=== PATIENT | female | born 1925 | race Caucasian/White ===

== ENCOUNTER 2017-02-23 12:44 | Emergency (ER) | payer MEDICAID ==
[~2017-02-23] VITALS: Ht 160 cm; Wt 89.6 kg
[~2017-02-23 12:44] MED LIST: ACET-141 PO; ATEN50TA PO; ATOR80TA75 PO; CIPR500T4 PO; DICY20TA59 PO; DIPH1TAB25 PO; GABA300C PO; METR500T PO
[2017-02-23 12:48] VITALS: Ht 160 cm; Wt 89.6 kg
[2017-02-23] MEDS ORDERED: SOD CHLORIDE 0.9% 1,000 ML IV STA (14:28)
[2017-02-23] MEDS ORDERED: ONDANSETRON 4 MG INJ IV STA (14:28)
[2017-02-23] MEDS ORDERED: morphine 2 MG INJ IV STA (14:28)
[2017-02-23 15:16] LABS: ADD SCAN DIFF NO
[2017-02-23 15:19] LABS: ADD UMIC YES; BASOPHILS % 0.3 % (0.0-2.0); EOSINOPHILS # 0.1 10^3/ul (0.0-0.5); EOSINOPHILS % 1.7 % (0.0-7.0); HEMATOCRIT 40.8 % (37.0-47.0); LYMPHOCYTES # 1.9 10^3/ul (0.8-2.9); LYMPHOCYTES % 29.4 % (15.0-51.0); MEAN CORPUSCULAR HEMOGLOBIN 31.8 pg (29.0-33.0); MEAN CORPUSCULAR HGB CONC 34.3 g/dl (32.0-37.0); MEAN CORPUSCULAR VOLUME 92.7 fl (82.0-101.0); MEAN PLATELET VOLUME 11.9 fl (7.4-10.4); MONOCYTE # 0.5 10^3/ul (0.3-0.9); MONOCYTES % 7.3 % (0.0-11.0); PLATELET COUNT 154 10^3/UL (140-415); RED CELL DISTRIBUTION WIDTH 12.3 % (11.5-14.5); URINE BILIRUBIN (Dip) NEGATIVE (NEGATIVE); URINE BLOOD (Dip) NEGATIVE (NEGATIVE); URINE COLOR LT. YELLOW (YELLOW); URINE GLUCOSE (Dip) NEGATIVE (NEGATIVE); URINE KETONES (Dip) NEGATIVE (NEGATIVE); URINE LEUKOCYTE ESTERASE (Dip) TRACE (NEGATIVE); URINE NITRITE (Dip) NEGATIVE (NEGATIVE); URINE TOTAL PROTEIN (Dip) NEGATIVE (NEGATIVE); URINE UROBILINOGEN (Dip) 0.2 E.U./dL (0.1-1.0); WHITE BLOOD COUNT 6.5 10^3/ul (4.8-10.8)
[2017-02-23 15:30] LABS: SQUAMOUS EPITHELIAL CELL,UR FEW; URINE RBCS 0-2 /HPF (0)
[2017-02-23 15:31] LABS: BACTERIA,URINE FEW
[2017-02-23 15:38] LABS: ALBUMIN 4.5 g/dl (3.3-4.9); ALBUMIN/GLOBULIN RATIO 1.45; BILIRUBIN,INDIRECT 0.6 mg/dl (0-1.1); BILIRUBIN,TOTAL 0.6 mg/dl (0.2-1.3); CALCIUM 9.9 mg/dl (8.4-10.2); CREATININE 0.63 mg/dl (0.44-1.00); POTASSIUM 4.3 mmol/L (3.5-5.1); TOTAL PROTEIN 7.6 g/dl (6.1-8.1)
--- NOTE | 2017-02-23 15:47 | RADRPT ---
PROCEDURE: CT Abdomen and Pelvis without contrast. CLINICAL INDICATION: Left flank pain TECHNIQUE: CT of the abdomen and pelvis was performed on a multi-detector scanner without IV contr ast. Coronal and sagittal images were reformatted from the axial data set. One or more of the foll owing dose reduction techniques were used: automated exposure control, adjustment of the mA and/or kV according to patient size, use of iterative reconstruction technique. CTDI = 12.56 mGy. DLP = 69 7.9 mGy-cm. COMPARISON: CT, 05/15/2016 FINDINGS: CT abdomen: The lung bases are clear. The heart size is normal, without pericardial effusion. The liver demons trates multiple benign cysts, stable over time. Gallbladder, biliary tree, pancreas, spleen, adrena l glands and kidneys are unremarkable. No urolithiasis or obstructive uropathy is identified. The stomach is grossly unremarkable. The aorta is of normal caliber. There is no retroperitoneal lymphadenopathy. The wilner hepatis reg ion is clear. CT pelvis: No bowel obstruction, free intraperitoneal air or abscess is identified. Sigmoid diverticulosis is seen without diverticulitis. Mild retained fecal material may indicate constipation. There is no a ppendicitis or colitis. Urinary bladder, uterus and adnexa are unremarkable. No pelvic mass, free fluid or lymphadenopathy is identified. The surrounding osseous structures are remarkable for degenerative spondylosis of the spine. No ost eolytic or osteoblastic lesion is detected. 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 IMPRESSION: 1. Sigmoid diverticulosis is seen without diverticulitis. 2. Mild retained fecal material may indicate constipation. 3. No urolithiasis or obstructive uropathy is identified. 4. 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 5. No mass, lymphadenopathy, or focal acute inflammatory process is identified. RPTAT: HDWR .Tony Boone MD, MD Date Time Electronically viewed and signed by .Tony Boone MD, MD on 02/23/2017 15:47 .R/
[2017-02-23] MEDS ORDERED: DICLOFENAC SODIUM 37.5 MG/ML VIAL IV STA (16:01)
[2017-02-23] MEDS ORDERED: METH500T PO (16:16)
[2017-02-23] MEDS ORDERED: HYDR-906 PO (16:16)
[2017-02-23] MEDS ORDERED: NAPR-688 PO (16:16)
[2017-02-23] MEDS ORDERED: CEPH-443 PO (16:16)
[2017-02-23] MEDS ORDERED: POLY17PO6 PO (16:20)
[2017-02-23] MEDS ORDERED: CHOL20003 PO (16:26)
[2017-02-23 16:28] VITALS: BP 148/82; PULSE 70; RESP 16
--- NOTE | 2017-02-23 16:34 | ERD ---
ER Documentation Chief Complaint Date/Time DATE: 02/23/17 TIME: 16:24 Chief Complaint BACK PAIN TODAY, TEARFUL, SCANTY URINE HPI This 89-year-old female presents emergency room today with left-sided lower back pain as well as pain shooting down the back of her leg to the level of her foot. She is coming by her daughter. She wears the pain may be kidney pain and she thinks she might have a history of kidney stones. She denies any fever or chills. She does not have dysuria. Sever the pain itself she feels otherwise well. The pain is been present for the last 10 days. She does experience back pain sometimes but this is worse than normal. She denies any numbness. Denies any leg weakness. ROS All systems reviewed and are negative except as per history of present illness. Medications Home Meds Active Scripts Polyethylene Glycol* (Miralax*) 17 Gm Powd.pack, 17 GM PO DAILY, #7 Prov:ELVAI CARTAGENA DO 02/23/17 Cephalexin* (Keflex*) 500 Mg Capsule, 500 MG PO TID for 3 Days, CAP Prov:ELVIA CARTAGENA DO 02/23/17 Hydrocodone/Acetaminophen ([place] 5-325 Tablet) 1 Each Tablet, 1 EACH PO Q12, # 10 TAB Prov:ELVIA CARTAGENA DO 02/23/17 Methocarbamol* (Robaxin*) 500 Mg Tab, 500 MG PO Q8, #20 TAB Prov:ELVIA CARTAGENA DO 02/23/17 Naproxen* (Naproxen*) 500 Mg Tablet, 375 MG PO BID Y for PAIN, #14 TAB Prov:ELVIA CARTAGENA DO 02/23/17 Dicyclomine Hcl* (Bentyl*) 20 Mg Tablet, 20 MG PO QID, #14 TAB Prov:JER REEDSTOLOS A. DO 05/15/16 Diphenoxylate Hcl-Atropine* (Lomotil*) 1 Tab Tab, 1 TAB PO QID Y for DIARRHEA, # 10 TAB Prov:JESSIEOSJERSTOLOS A. DO 05/15/16 Metronidazole* (Flagyl*) 500 Mg Tablet, 500 MG PO TID for 7 Days, TAB Prov:JER REEDSTOLOS A. DO 05/15/16 Ciprofloxacin Hcl* (Ciprofloxacin Hcl*) 500 Mg Tablet, 500 MG PO BID for 7 Days , TAB Prov:KIANA REED DO 05/15/16 Reported Medications Atorvastatin* (Atorvastatin*) 80 Mg Tablet, 80 MG PO HS, TAB 04/28/15 Atenolol* (Atenolol*) 50 Mg Tablet, 50 MG PO DAILY, TAB 04/28/15 Acetaminophen* (Acetaminophen*) 500 MG Extra Strength Tablet, 500 MG PO Q4H Y for PAIN AND OR ELEVATED TEMP, TAB 12/19/14 Gabapentin* (Neurontin*) 300 Mg Capsule, 300 MG PO BID 02/27/11 Allergies Allergies: Coded Allergies: No Known Allergies (Verified Allergy, Mild, 05/15/16) PMhx/Soc History of Surgery: No Anesthesia Reaction: No Hx Neurological Disorder: Yes ('s palsy) Hx Respiratory Disorders: No Hx Cardiac Disorders: Yes (htn, cholesterol) Hx Psychiatric Problems: No Hx Miscellaneous Medical Probl: Yes (gallstones ) Hx Alcohol Use: No Hx Substance Use: No Hx Tobacco Use: No Smoking Status: Never smoker Physical Exam Vitals Vital Signs Date Time Temp Pulse Resp B/P Pulse Ox O2 Delivery O2 Flow Rate FiO2 02/23/17 12:48 98.1 78 18 178/ 99 Physical Exam Const: [] No distress Head: Atraumatic Eyes: Normal Conjunctiva ENT: Normal External Ears, Nose and Mouth. Neck: Full range of motion..~ No meningismus. Resp: Clear to auscultation bilaterally Cardio: Regular rate and rhythm, no murmurs Abd: Soft, non tender, non distended. Normal bowel sounds Skin: No petechiae or rashes Back: No midline or flank tenderness, left lumbar paraspinal muscle spasm with tenderness. Ext: No cyanosis, or edema, no saddle anesthesia, distal pulses intact all 4 extremities Neur: Awake and alert and oriented 3, no focal deficits, cranial nerves II through XII intact, 5 out of 5 strength bilateral lower extremities Psych: Normal Mood and Affect Result Diagram: 02/23/17 1455 02/23/17 1455 Results 24 hrs Laboratory Tests Test 02/23/17 14:55 White Blood Count 6.510^3/ul Red Blood Count 4.4010^6/ul Hemoglobin 14.0g/dl Hematocrit 40.8% Mean Corpuscular Volume 92.7fl Mean Corpuscular Hemoglobin 31.8pg Mean Corpuscular Hemoglobin Concent 34.3g/dl Red Cell Distribution Width 12.3% Platelet Count 34198^3/UL Mean Platelet Volume 11.9fl Neutrophils % 61.0% Lymphocytes % 29.4% Monocytes % 7.3% Eosinophils % 1.7% Basophils % 0.3% Nucleated Red Blood Cells % 0.0/100WBC Neutrophils # 4.010^3/ul Lymphocytes # 1.910^3/ul Monocytes # 0.510^3/ul Eosinophils # 0.110^3/ul Basophils # 0.010^3/ul Nucleated Red Blood Cells # 0.010^3/ul Urine Color LT. YELLOW Urine Clarity CLEAR Urine pH 7.0 Urine Specific [place] 1.010 Urine Ketones NEGATIVE Urine Nitrite NEGATIVE Urine Bilirubin NEGATIVE Urine Urobilinogen 0.2 E.U./dL Urine Leukocyte Esterase TRACE Urine Microscopic RBC 0-2/HPF Urine Microscopic WBC 2-5/HPF Urine Squamous Epithelial Cells FEW Urine Bacteria FEW Urine Hemoglobin NEGATIVE Urine Glucose NEGATIVE% Urine Total Protein NEGATIVE Sodium Level 141mmol/L Potassium Level 4.3mmol/L Chloride Level 106mmol/L Carbon Dioxide Level 27mmol/L Anion Gap 12 Blood Urea Nitrogen 15mg/dl Creatinine 0.63mg/dl Glucose Level 98mg/dl Calcium Level 9.9mg/dl Total Bilirubin 0.6mg/dl Direct Bilirubin 0.00mg/dl Indirect Bilirubin 0.6mg/dl Aspartate Amino Transf (AST/SGOT) 22IU/L Alanine Aminotransferase (ALT/SGPT) 28IU/L Alkaline Phosphatase 83IU/L Total Protein 7.6g/dl Albumin 4.5g/dl Globulin 3.10g/dl Albumin/Globulin Ratio 1.45 Lipase 137U/L Current Medications Medications (Trade) Dose Ordered Sig/Bette Route PRN Reason Start Time Stop Time Status Last Admin Dose Admin Sodium Chloride (NS) 1,000 ml @ 1,000 mls/hr Q1H STAT IV 02/23/17 14:28 02/23/17 15:27 DC 02/23/17 15:11 Morphine Sulfate (morphine) 2 mg ONCE STAT IV 02/23/17 14:28 02/23/17 14:32 DC 02/23/17 15:12 Ondansetron HCl (Zofran Inj) 4 mg ONCE STAT IV 02/23/17 14:28 02/23/17 14:32 DC 02/23/17 15:12 Diclofenac Sodium (Dyloject) 37.5 mg ONCE STAT IV 02/23/17 16:01 02/23/17 16:03 DC Procedures/MDM Unilateral muscle spasm and back pain with sciatica in the elderly female with no history of trauma. CT demonstrates spondylolysis that is chronic in nature. This could be causing the patient's symptoms. I have very low suspicion for cauda equina syndrome as patient has no saddle anesthesia, urinary retention, incontinence, and no leg weakness. She was given 2 mg of morphine as well as dilated jacked which did help with her pain in the emergency room. She was smiling and feeling better. Did have trace leukocyte esterase with 2-5 white cells in the urine. This may represent a possible urinary tract infection. I am been treated with 3 days of Keflex to be safe. Also giving her Robaxin as well as naproxen for spasm. Giving her 10 [place] 5 pills as well in instructing with her and the daughter that she should be careful with these as they can cause dizziness and possible falls. CT abdomen pelvis interpretation: Mild constipation, L5-S1 spondylolysis, mild constipation, no free air, no obstruction, no abnormal fat stranding. Departure Diagnosis: Primary Impression: Flank pain, acute Additional Impressions: Back pain with sciatica Constipation Condition: Stable Patient Instructions: Flank Pain, Uncertain Cause, Back Pain W/ Sciatica Additional Instructions: Llame al doctor NAVNEET y choco demond PRASHANT PARA DENTRO DE 2-3 MOY para conseguir un referral a un doctor de ORTHO SPINE. Dgale a la secretaria que nosotros le instruimos hacer esta prashant.Avise o llame si mcgill condicin se empeora antes de la prashant. Regresa aqui si peor o no mejor. ELVIA CARTAGENA DO February 23, 2017 16:34
== END 2017-02-23 16:36 | disposition home or self-care (01) ==
LOC: E/R 12:44
DX: R10.9 Unspecified abdominal pain (principal); R40.2252 Coma scale, best verbal response, oriented, at arrival to emergency department; M54.42 Lumbago with sciatica, left side; K59.00 Constipation, unspecified; R40.2142 Coma scale, eyes open, spontaneous, at arrival to emergency department; R40.2362 Coma scale, best motor response, obeys commands, at arrival to emergency department; I10 Essential (primary) hypertension
CPT/HCPCS: 36415; 74176; 80053; 81001; 81003; 83690; 85025; 96374; 96375; J2270; J2405; J7030; Z7502

== ENCOUNTER 2017-08-02 14:23 | Emergency (ER) | payer MEDICAID ==
[~2017-08-02] VITALS: Ht 157.5 cm; Wt 60.0 kg
[~2017-08-02 14:23] MED LIST changes: -ACET-141 PO; -ATEN50TA PO; -ATOR80TA75 PO; +CEPH-443 PO; +CHOL200073 PO; -CIPR500T4 PO; -DICY20TA59 PO; -DIPH1TAB25 PO; -GABA300C PO; +HYDR-906 PO; +METH500T PO; -METR500T PO; +NAPR-688 PO; +POLY17PO6 PO
[2017-08-02 14:29] VITALS: Ht 157.5 cm; Wt 60.0 kg
[2017-08-02] MEDS ORDERED: KETOROLAC 15 MG INJ IV STA (16:48)
[2017-08-02] MEDS ORDERED: ONDANSETRON 4 MG INJ IV STA (16:48)
[2017-08-02] MEDS ORDERED: morphine 4 MG/ML VIAL IV STA (16:48)
[2017-08-02 17:17] LABS: ADD UMIC YES; UR ASCORBIC ACID NEGATIVE (NEGATIVE); UR BACTERIA FEW /HPF (NONE SEEN); UR BILIRUBIN (Dip) NEGATIVE (NEGATIVE); UR BLOOD (Dip) 1+ mg/dL (NEGATIVE); UR CLARITY CLEAR (CLEAR); UR COLOR YELLOW (YELLOW); UR GLUCOSE (Dip) NEGATIVE (NEGATIVE); UR KETONES (Dip) NEGATIVE (NEGATIVE); UR LEUKOCYTE ESTERASE (Dip) 1+ Leu/ul (NEGATIVE); UR NITRITE (Dip) NEGATIVE (NEGATIVE); UR RBC 3 /HPF (0-5); UR SPECIFIC GRAVITY (Dip) 1.015 (1.003-1.030); UR SQUAMOUS EPITHELIAL CELL FEW /HPF (FEW); UR TOTAL PROTEIN (Dip) NEGATIVE (NEGATIVE); UR UROBILINOGEN (Dip) NEGATIVE (NEGATIVE)
--- NOTE | 2017-08-02 18:44 | RADRPT ---
PROCEDURE: XR Lumbar Spine. CLINICAL INDICATION: Low back pain. TECHNIQUE: AP, cone-down lateral, and lateral views of the lumbar spine were obtained. COMPARISON: None. FINDINGS: Diffuse decreased mineralization cannot exclude osteopenia or osteoporosis. Mild loss of axial heigh t consistent with chronic wedge deformity at T8, T9, T10 and T11. No acute vertebral body compressi on fracture is present. Spondylolytic grade II spondylolisthesis of L5 relative to S1. The facet i s estimated at 1.5 cm on the coned-down lateral view. No vertebral subluxation is seen. Degenerati ve disc narrowing is greatest at the L5-S1. The remaining disc spaces of the lumbar spine are preser reji. There is narrowing of the lower thoracic level discs. Facet arthropathy as severe at L4-5 and L5-S1 . RPTAT:HJJR IMPRESSION: 1. Grade II spondylolytic spondylolisthesis of L5-S1 with associated disc space narrowing. 2. Demineralization likely osteoporosis with chronic-appearing wedge deformities of the visualized thoracic spine. 3. Lower lumbar facet arthropathy. Physician Dennis Date Time Electronically viewed and signed by Physician Dennis on 08/02/2017 18:44 JR/
[2017-08-02 18:45] VITALS: BP 129/76; PULSE 69; RESP 22; TEMP 98.8
--- NOTE | 2017-08-02 18:45 | ERD ---
ER Documentation Chief Complaint Chief Complaint BACK PAIN AND LEG WEAKNESS LEFT LEG PAIN HPI 89-year-old female presents emergency room for increasing back pain with pain shooting down her left leg for the last few days. No trauma.. She is having difficulty ambulating secondary to the pain. Urinary retention, no saddle anesthesia. Does not think she is urinating more than usual. States she does have a history of arthritis. She tried taking Advil for the pain which helped minimally yesterday. ROS All systems reviewed and are negative except as per history of present illness. Medications Home Meds Active Scripts Cephalexin* (Keflex*) 500 Mg Capsule, 500 MG PO QID for 3 Days, CAP Prov:ELVIA CARTAGENA DO 08/02/17 Methocarbamol* (Robaxin*) 500 Mg Tab, 500 MG PO Q8 for MUSCLE SPASMS, #20 TAB Prov:ELVIA CARTAGENA DO 08/02/17 Naproxen* (Naproxen*) 375 Mg Tablet, 375 MG PO BID Y for PAIN, #14 TAB Prov:MITZIELVIA DO 08/02/17 Hydrocodone/Acetaminophen ([place]oren[place] 5-325 Tablet) 1 Each Tablet, 1 EACH PO Q6 for SEVERE PAIN LEVEL 7-10, #20 TAB Prov:ELVIA CARTAGENA DO 08/02/17 Reported Medications Cholecalciferol (Vitamin D3) (VITAMIN D-3) 2,000 Unit Capsule, 2000 UNIT PO DAILY, CAP 08/02/17 Atenolol* (Atenolol*) 50 Mg Tablet, 50 MG PO DAILY, #30 TAB 08/02/17 Methocarbamol* (Methocarbamol*) 500 Mg Tablet, 500 MG PO Q8, TAB 08/02/17 Calcium Carbonate* (Calcium Carbonate*) 600 MG Ca Tab, 600 MG PO DAILY, TAB 08/02/17 Acetaminophen* (Acetaminophen*) 500 MG Extra Strength Tablet, 500 MG PO NEEDED Y for PAIN AND OR ELEVATED TEMP, TAB 08/02/17 Cephalexin* (Cephalexin*) 500 Mg Capsule, 500 MG PO TID, #21 CAP 08/02/17 Aspirin* (Aspirin* EC) 81 Mg Tablet.dr, 81 MG PO DAILY, TAB 08/02/17 Gabapentin* (Gabapentin*) 300 Mg Capsule, 300 MG PO DAILY, #60 CAP 08/02/17 Discontinued Reported Medications Cholecalciferol (Vitamin D3) (VITAMIN D-3) 2,000 Unit Capsule, 2000 UNIT PO DAILY, CAP 02/23/17 Discontinued Scripts Polyethylene Glycol* (Miralax*) 17 Gm Powd.pack, 17 GM PO DAILY, #7 Prov:ELVIA CARTAGENA DO 02/23/17 Cephalexin* (Keflex*) 500 Mg Capsule, 500 MG PO TID for 3 Days, CAP Prov:ELVIA CARTAGENA DO 02/23/17 Hydrocodone/Acetaminophen (Lorenzo 5-325 Tablet) 1 Each Tablet, 1 EACH PO Q12, # 10 TAB Prov:ELVIA CARTAGENA DO 02/23/17 Methocarbamol* (Robaxin*) 500 Mg Tab, 500 MG PO Q8, #20 TAB Prov:ELVIA CARTAGENA DO 02/23/17 Naproxen* (Naproxen*) 500 Mg Tablet, 375 MG PO BID Y for PAIN, #14 TAB Prov:ELVIA CARTAGENA DO 02/23/17 Allergies Allergies: Coded Allergies: No Known Allergies (Verified Allergy, Mild, 08/02/17) PMhx/Soc History of Surgery: No Anesthesia Reaction: No Hx Neurological Disorder: Yes ('s palsy) Hx Respiratory Disorders: No Hx Cardiac Disorders: Yes (htn, cholesterol) Hx Psychiatric Problems: No Hx Miscellaneous Medical Probl: Yes (gallstones ) Hx Alcohol Use: No Hx Substance Use: No Hx Tobacco Use: No Smoking Status: Never smoker Physical Exam Vitals Vital Signs Date Time Temp Pulse Resp B/P Pulse Ox O2 Delivery O2 Flow Rate FiO2 08/02/17 18:45 98.8 69 22 129/76 94 Room Air 08/02/17 17:39 67 20 133/78 98 Room Air 08/02/17 14:29 98.8 84 18 143/78 97 Physical Exam Const: [] Mild distress Head: Atraumatic Eyes: Normal Conjunctiva ENT: Normal External Ears, Nose and Mouth. Neck: Full range of motion..~ No meningismus. Abd: Soft, non tender, non distended. Normal bowel sounds Skin: No petechiae or rashes Back: Mild bilateral paraspinal muscular tenderness, no deformities. Muscle mass proportionately greater on right than left. Ext: No cyanosis, or edema, no actual leg weakness but pain on range of motion of legs prior to pain medication. Neur: Awake and alert oriented 3, no focal deficits, cranial nerves II through XII intact, proprioception and sensation intact bilateral lower extremities with no saddle anesthesia per Results 24 hrs Laboratory Tests Test 08/02/17 17:00 Urine Color YELLOW Urine Clarity CLEAR Urine pH 6.0 Urine Specific [place] 1.015 Urine Ketones NEGATIVEmg/dL Urine Nitrite NEGATIVEmg/dL Urine Bilirubin NEGATIVEmg/dL Urine Urobilinogen NEGATIVEmg/dL Urine Leukocyte Esterase 1+Dona/ul Urine Microscopic RBC 3/HPF Urine Microscopic WBC 8/HPF Urine Squamous Epithelial Cells FEW/HPF Urine Bacteria FEW/HPF Urine Hemoglobin 1+mg/dL Urine Glucose NEGATIVEmg/dL Urine Total Protein NEGATIVEmg/dl Current Medications Medications (Trade) Dose Ordered Sig/Bette Route PRN Reason Start Time Stop Time Status Last Admin Dose Admin Morphine Sulfate (morphine) 4 mg ONCE STAT IV 08/02/17 16:48 08/02/17 16:52 DC 08/02/17 17:15 Ondansetron HCl (Zofran Inj) 4 mg ONCE STAT IV 08/02/17 16:48 08/02/17 16:52 DC 08/02/17 17:16 Ketorolac Tromethamine (Toradol) 15 mg ONCE STAT IV 08/02/17 16:48 08/02/17 16:52 DC 08/02/17 17:15 Procedures/MDM Elderly female with back pain likely secondary to arthritis and spondylolisthesis. Did not actually have leg weakness. She was given 4 mg of morphine IV as well as Zofran and small dose of Toradol. After this her pain was much better. She was road tested using her normal wheeled walker and was able to ambulate without difficulty. Also has mild urinary tract infection. Going to discharge her with Lorenzo, naproxen, Robaxin as well as Keflex for 3 days 4 times daily. I have spoken to the family and patient at length about following up with the neurosurgeon orthospine specialist to evaluate the spondylolisthesis and consider possible surgical options as well as getting referral for a physical therapist to start physical therapy through her primary care doctor. Family is going to call tomorrow to try to set this things up. I have very low suspicion for cauda equina syndrome as patient does not have leg weakness, urinary retention or saddle anesthesia. 3 lumbar spine interpretation: Grade 2 spondylolisthesis of L5-S1 with disc space narrowing, multilevel degenerative disc disease, no fracture dislocation or subluxation. Departure Diagnosis: Primary Impression: Spondylolisthesis at L5-S1 level Additional Impressions: Back pain with sciatica UTI (urinary tract infection) Condition: Stable ELVIA CARTAGENA DO Aug 02, 2017 18:43
[2017-08-02] MEDS ORDERED: GABA300C16 PO (19:08)
[2017-08-02] MEDS ORDERED: CEPH500C PO (19:09)
[2017-08-02] MEDS ORDERED: ASPI-664 PO (19:09)
[2017-08-02] MEDS ORDERED: ACET-141 PO (19:09)
[2017-08-02] MEDS ORDERED: CALC600T24 PO (19:10)
[2017-08-02] MEDS ORDERED: METH500T8 PO (19:10)
[2017-08-02] MEDS ORDERED: ATEN50TA PO (19:11)
[2017-08-02] MEDS ORDERED: CHOL200073 PO (19:11)
[2017-08-02] MEDS ORDERED: HYDR-906 PO (20:25)
[2017-08-02] MEDS ORDERED: METH500T PO (20:25)
[2017-08-02] MEDS ORDERED: NAPR-685 PO (20:25)
[2017-08-02] MEDS ORDERED: CEPH-443 PO (20:28)
== END 2017-08-02 20:10 | disposition home or self-care (01) ==
LOC: E/R 14:23
DX: M43.17 Spondylolisthesis, lumbosacral region (principal); R40.2252 Coma scale, best verbal response, oriented, at arrival to emergency department; N39.0 Urinary tract infection, site not specified; I10 Essential (primary) hypertension; R40.2142 Coma scale, eyes open, spontaneous, at arrival to emergency department; R40.2362 Coma scale, best motor response, obeys commands, at arrival to emergency department; Z79.82 Long term (current) use of aspirin
CPT/HCPCS: 72100; 81001; 96374; 96375; J1885; J2270; J2405; Z7502